=== PATIENT | male | born 1980 ===

== ENCOUNTER 2021-02-12 01:32 | Emergency (ER) | payer BC ==
--- NOTE | 2021-02-12 02:35 | ER ---
Nurse's Notes [facility] Name: Vaibhav Taveras Age: 40 yrs Sex: Male : 1980 Arrival Date: 02/12/2021 Time: 01:34 Bed 5 Private MD: Diagnosis: Nondisplaced transverse fracture of shaft of left ulna, initial encounter for closed fracture Presentation: 02/12 02:15 Coronavirus screen: At this time, the client does not indicate any symptoms associated lp1 with coronavirus-19. Ebola Screen: No symptoms or risks identified at this time. Initial Sepsis Screen: Does the patient meet any 2 criteria? No. Patient's initial sepsis screen is negative. Does the patient have a suspected source of infection? No. Patient's initial sepsis screen is negative. Risk Assessment: Do you want to hurt yourself or someone else? Patient reports no desire to harm self or others. Onset of symptoms was February 12, 2021. 02:16 Chief complaint: Patient states: "I think my arm is broken"; Patient reports pain to lp1 left forearm after falling out of tree x 1 week ago. 02:16 Method Of Arrival: Ambulatory lp1 02:16 Acuity: JIM 4 lp1 Triage Assessment: 03:10 Injury Description: Deformity sustained to left arm and palmar aspect of left forearm. lh3 Historical: - Allergies: 02:41 No Known Allergies; lp1 - Home Meds: 02:41 None [Active]; lp1 - PMHx: 02:41 Asthma; lp1 - PSHx: 02:41 None; lp1 - Immunization history:: Adult Immunizations up to date. - Social history:: Smoking status: Patient denies any tobacco usage or history of. Screenin:42 Abuse screen: Denies threats or abuse. Denies injuries from another. Nutritional lp1 screening: No deficits noted. Tuberculosis screening: No symptoms or risk factors identified. Fall Risk None identified. Assessment: 02:42 General: Appears in no apparent distress. Behavior is appropriate for age. Pain: lp1 Complains of pain in palmar aspect of left forearm. Neuro: No deficits noted. Cardiovascular: No deficits noted. Respiratory: No deficits noted. GI: No signs and/or symptoms were reported involving the gastrointestinal system. : No signs and/or symptoms were reported regarding the genitourinary system. EENT: No signs and/or symptoms were reported regarding the EENT system. Derm: Skin is pink, warm \\T\\ dry. Musculoskeletal: Circulation, motion, and sensation intact. Range of motion: intact in all extremities, Reports pain in palmar aspect of left forearm. 03:09 Reassessment: Patient appears in no apparent distress at this time. No changes from lh3 previously documented assessment. Patient and/or family updated on plan of care and expected duration. Pain level reassessed. Patient is alert, oriented x 3, equal unlabored respirations, skin warm/dry/pink. Patient states feeling better. 03:09 Reassessment: sugar tong splint and shoulder sling placed at this time. Verified and lh3 seen by LENORE Angulo. Vital Signs: 02:15 BP 129 / 95; Pulse 82; Resp 18; Temp 97.4(TE); Pulse Ox 98% on R/A; Weight 81.65 kg lp1 (R); Height 6 ft. 0 in. (182.88 cm); 02:15 Body Mass Index 24.41 (81.65 kg, 182.88 cm) lp1 ED Course: 01:34 Patient arrived in ED. bp1 01:58 Kemal Lyle PA is PHCP. cp 01:58 Bhaskar Rosario MD is Attending Physician. cp 02:17 Triage completed. lp1 02:26 XRAY Forearm LEFT In Process Unspecified. EDMS 02:31 Roberth Potter MD is Referral Physician. cp 02:33 Jemma Figueroa, RN is Primary Nurse. bs2 02:42 Patient has correct armband on for positive identification. lp1 02:43 Arm band placed on. lp1 02:43 No provider procedures requiring assistance completed. Patient did not have IV access lp1 during this emergency room visit. Administered Medications: 02:37 Drug: Ibuprofen 800 mg Route: PO; lh3 02:37 Drug: Tylenol 1000 mg Route: PO; lh3 Outcome: 02:35 Discharge ordered by . cp 03:10 Discharged to Law Enforcement lh3 03:10 Condition: good 03:10 Discharge instructions given to patient, police, Instructed on discharge instructions, follow up and referral plans. medication usage, Demonstrated understanding of instructions, follow-up care, medications, splint care. 03:11 Patient left the ED. lh3 Signatures: Dispatcher [employer] Laurie Burroughs RN RN lp1 Kemal Lyle PA PA cp Pania[place], Brittany bp1 Smith, Bridget RN RN bs2 Celsa Newell RN RN lh3
--- NOTE | 2021-02-12 02:35 | EDPHYS ---
Physician Documentation [facility] Name: Vaibhav Taveras Age: 40 yrs Sex: Male : 1980 Arrival Date: 02/12/2021 Time: 01:34 Bed 5 Private MD: ED Physician Bhaskar Rosario HPI: 02/12 01:59 This 40 yrs old Male presents to ER via Unassigned with complaints of Arm Injury. cp 01:59 The patient or guardian complains of injury, pain, that is acute, swelling. The cp complaints affect the palmar aspect of left forearm. 01:59 Onset: The symptoms/episode began/occurred 1 week(s) ago. cp 01:59 Context: resulted from fall out of tree. Treatment prior to arrival includes: no cp previous treatment. Associated signs and symptoms: Pertinent negatives: decreased range of motion, deformity, numbness, tingling. Historical: - Allergies: 02:41 No Known Allergies; lp1 - Home Meds: 02:41 None [Active]; lp1 - PMHx: 02:41 Asthma; lp1 - PSHx: 02:41 None; lp1 - Immunization history:: Adult Immunizations up to date. - Social history:: Smoking status: Patient denies any tobacco usage or history of. ROS: 02:05 MS/extremity: Positive for injury or acute deformity, pain, swelling, tenderness, of cp the left forearm. 02:05 Constitutional: Negative for body aches, chills, fever, poor PO intake. cp 02:05 Cardiovascular: Negative for chest pain. 02:05 Respiratory: Negative for cough, shortness of breath, wheezing. 02:05 Abdomen/GI: Negative for abdominal pain, nausea, vomiting, and diarrhea. 02:05 Skin: Negative for cellulitis, rash. 02:05 Neuro: Negative for altered mental status, headache, numbness, weakness. 02:05 All other systems are negative. Exam: 02:10 Musculoskeletal/extremity: Extremities: grossly normal except: noted in the left cp forearm: pain, swelling, tenderness, ROM: full active range of motion, in the left elbow and left wrist, Perfusion: the extremity is normally perfused throughout, Sensation intact. 02:10 Head/Face: Normocephalic, atraumatic. cp 02:10 Constitutional: The patient appears in no acute distress, alert, awake, well developed, well nourished. 02:10 Chest/axilla: Inspection: normal. 02:10 Cardiovascular: Rate: normal. 02:10 Respiratory: the patient does not display signs of respiratory distress, Respirations: normal, no use of accessory muscles, no retractions. 02:10 Skin: cellulitis, is not appreciated, no rash present. Vital Signs: 02:15 BP 129 / 95; Pulse 82; Resp 18; Temp 97.4(TE); Pulse Ox 98% on R/A; Weight 81.65 kg lp1 (R); Height 6 ft. 0 in. (182.88 cm); 02:15 Body Mass Index 24.41 (81.65 kg, 182.88 cm) lp1 Procedures: 03:10 Splinting: Splint applied to left forearm using Orthoglass splint, sugar tong type. cp applied by tech. Examined by me, post splint application: neurovascular intact, Patient tolerated well. MDM: 02:15 Patient medically screened. cp 02:35 Data reviewed: vital signs, nurses notes, radiologic studies, plain films, and as a cp result, I will discharge patient. 02:35 Test interpretation: by ED physician or midlevel provider: xrays of left forearm show cp non-displaced mid shaft left ulna fracture. Counseling: I had a detailed discussion with the patient and/or guardian regarding: the historical points, exam findings, and any diagnostic results supporting the discharge/admit diagnosis, radiology results, the need for outpatient follow up, a orthopedic surgeon, to return to the emergency department if symptoms worsen or persist or if there are any questions or concerns that arise at home. Response to treatment: the patient's symptoms have markedly improved after treatment, and as a result, I will discharge patient. 02/12 01:59 Order name: XRAY Forearm LEFT cp 02/12 02:23 Order name: Sugar Tong Forearm Splint; Complete Time: 02:48 cp 02/12 03:02 Order name: Sling; Complete Time: 03:09 cp Administered Medications: 02:37 Drug: Ibuprofen 800 mg Route: PO; lh3 02:37 Drug: Tylenol 1000 mg Route: PO; lh3 Disposition: 03:05 Chart complete. cp 06:44 Co-signature as Attending Physician, Bhaskar Rosario MD I agree with the assessment and sp3 plan of care. Disposition Summary: 02/12/21 02:35 Discharge Ordered Location: Home cp Problem: new cp Symptoms: have improved cp Condition: Stable cp Diagnosis - Nondisplaced transverse fracture of shaft of left ulna, initial encounter for cp closed fracture Followup: cp - With: Roberth Potter MD - When: 2 - 3 days - Reason: Recheck today's complaints Discharge Instructions: - Discharge Summary Sheet cp - Ulnar Fracture cp Forms: - Medication Reconciliation Form cp - Thank You Letter cp - Antibiotic Education cp - Prescription Opioid Use cp Prescriptions: - Naprosyn 500 mg Oral Tablet - take 1 tablet by ORAL route 2 times per day take with food; 20 tablet; Refills: cp 0, Product Selection Permitted Signatures: Dispatcher [employer] EDLaurie Almazan, RN RN lp1 Kemal Lyle PA PA cp Bhaskar Rosario MD MD sp3 Celsa Newell RN RN lh3
[2021-02-12 03:15] VITALS: BP 129/95; TEMP 97.4; O2SAT 98
[2021-02-12] MEDS ORDERED: ACETAMINOPHEN 500 MG TAB ONE (03:15)
[2021-02-12] MEDS ORDERED: IBUPROFEN 400 MG TAB ONE (03:16)
--- NOTE | 2021-02-12 08:37 | RAD REPORT ---
EXAM DESCRIPTION: RAD - Forearm Left - 02/12/2021 2:26 am CLINICAL HISTORY: injury;Pain COMPARISON: None. FINDINGS: No acute fractures identified. Transverse fracture in the midshaft of the ulna is present. There is callus formation surrounding the fracture site. Bridging ossification is present but the fr acture is not fully united. There is no information indicating the date of the ulna injury. Elbow and wrist joints show no acute findings. No foreign body or other soft tissue abnormality. IMPRESSION: No acute left forearm finding. Incompletely healed midshaft ulnar fracture is noted. No information is available indicating the date of the injury.
== END 2021-02-12 03:11 | disposition home or self-care (01) ==
LOC: ER 01:32
PROC: 2W3DX1Z Immobilization of Left Lower Arm using Splint (ICD-10-PCS; principal; 2021-02-12)
DX: S52.225A Nondisplaced transverse fracture of shaft of left ulna, initial encounter for closed fracture (principal); W14.XXXA Fall from tree, initial encounter
CPT/HCPCS: 99283